=== PATIENT | male | born 1950 | race Caucasian/White ===

== ENCOUNTER → 2018-11-17 | Outpatient (CLI) | payer MEDICARE, BC, OTHER ==
[~2018-11-17] MED LIST: ALEV220T26 PO; ANOR1AER IN; FOLI1TAB11 PO; HYDR200T3 PO; METH2.5T48 PO
[2018-11-17 09:02] LABS: HEMATOCRIT 43.6 % (42.0-52.0); HEMOGLOBIN 14.8 g/dl (13.5-17.5); MEAN CORPUSCULAR HGB CONC 33.9 g/dl (32.0-36.5); MEAN CORPUSCULAR VOLUME 94.4 fl (80.0-96.0); PLATELET COUNT, AUTOMATED 157 10^3/uL (150-450); RED BLOOD COUNT 4.62 10^6/uL (4.30-6.10); WHITE BLOOD COUNT 5.9 10^3/uL (4.0-10.0)
[2018-11-17 09:14] LABS: INR 1.07
[2018-11-17 09:22] LABS: ERYTHROCYTE SEDIMENTATION RATE 128 mm/hr (0-20)
--- NOTE | 2018-11-17 09:22 | REP ---
Chest two views HISTORY: Preop Comparison: None The lungs are hyperinflated. The lungs are clear. The heart is normal in size. The pulmonary vasculature is normal in appearance. The bony structure is intact. IMPRESSION: No acute disease. Electronically Signed by Jabari Cagle MD 11/17/2018 09:14 A
[2018-11-17 09:25] LABS: ALBUMIN 3.7 GM/DL (3.2-5.2); ALT/SGPT 22 U/L (12-78); BILIRUBIN,TOTAL 0.6 MG/DL (0.2-1.0); BLOOD UREA NITROGEN 27 MG/DL (7-18); CALCIUM LEVEL 8.8 MG/DL (8.8-10.2); CARBON DIOXIDE LEVEL 27 MEQ/L (21-32); CHLORIDE LEVEL 107 MEQ/L (98-107); CREATININE FOR GFR 0.86 MG/DL (0.70-1.30); GLOMERULAR FILTRATION RATE > 60.0 (>49); GLUCOSE, FASTING 82 MG/DL (70-100); POTASSIUM SERUM 4.2 MEQ/L (3.5-5.1); SODIUM LEVEL 141 MEQ/L (136-145); TOTAL PROTEIN 6.7 GM/DL (6.4-8.2)
--- NOTE | 2018-11-18 08:19 | ECGEPIP ---
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
== END ==
LOC: M LAB 08:27
PROVIDERS: ATTEND Physician Assistant Surgical
DX: Z01.818 Encounter for other preprocedural examination (principal); M16.11 Unilateral primary osteoarthritis, right hip; M05.79 Rheumatoid arthritis with rheumatoid factor of multiple sites without organ or systems involvement

== ENCOUNTER → 2018-11-17 | Outpatient (CLI) | payer MEDICARE, BC, OTHER ==
[2018-11-17 09:03] LABS: BASO # 0.1 10^3/uL (0.0-0.2); BASO % 1.1 % (0.0-1.0); EOS # 0.3 10^3/uL (0.0-0.50); EOS % 4.9 % (0.0-3.0); HEMATOCRIT 44.8 % (42.0-52.0); LYMPH # 1.4 10^3/uL (1.5-4.5); LYMPH % 24.5 % (24.0-44.0); MEAN CORPUSCULAR HEMOGLOBIN 32.3 pg (27.0-33.0); MEAN CORPUSCULAR HGB CONC 33.5 g/dl (32.0-36.5); MEAN CORPUSCULAR VOLUME 96.6 fl (80.0-96.0); MONO # 0.5 10^3/uL (0.0-0.8); MONO % 9.3 % (0.0-5.0); NEUTROPHILS # 3.4 10^3/uL (1.8-7.7); NEUTROPHILS % 59.7 % (36.0-66.0); PLATELET COUNT, AUTOMATED 155 10^3/uL (150-450); RED BLOOD COUNT 4.64 10^6/uL (4.30-6.10); WHITE BLOOD COUNT 5.7 10^3/uL (4.0-10.0)
[2018-11-17 09:37] LABS: ALBUMIN 3.7 GM/DL (3.2-5.2); ALT/SGPT 22 U/L (12-78); BILIRUBIN,TOTAL 0.6 MG/DL (0.2-1.0); BLOOD UREA NITROGEN 28 MG/DL (7-18); C REACTIVE PROTEIN QUANTITATIV 0.67 MG/DL (0.00-0.30); CALCIUM LEVEL 8.9 MG/DL (8.8-10.2); CARBON DIOXIDE LEVEL 27 MEQ/L (21-32); CHLORIDE LEVEL 107 MEQ/L (98-107); CREATININE FOR GFR 0.87 MG/DL (0.70-1.30); GLOMERULAR FILTRATION RATE > 60.0 (>49); GLUCOSE, FASTING 81 MG/DL (70-100); POTASSIUM SERUM 4.2 MEQ/L (3.5-5.1); SODIUM LEVEL 141 MEQ/L (136-145); TOTAL PROTEIN 6.7 GM/DL (6.4-8.2)
== END ==
LOC: M LAB 08:23
PROVIDERS: ATTEND Physician Assistant
DX: M05.79 Rheumatoid arthritis with rheumatoid factor of multiple sites without organ or systems involvement (principal)

== ENCOUNTER 2019-01-22 05:58 | Inpatient (IN) | payer MEDICARE, BC, OTHER ==
--- NOTE | 2019-01-13 14:16 | HPE ---
DATE OF ANTICIPATED ADMISSION: 01/22/2019 ATTENDING PHYSICIAN: Dr. Jon Ibarra. CHIEF COMPLAINT: Right hip pain and stiffness. HISTORY: This is a pleasant 68-year-old male patient with progressively worsening right hip pain and stiffness who has failed to improve with conservative management and has been consented for elective right total hip arthroplasty by Dr. Ibarra. ALLERGIES: No known drug allergies CURRENT MEDICATIONS: - cholecalciferol 50,000 units one by mouth daily - folic acid 1 mg one by mouth daily - Ellipta 62.5 - 25 mcg one puff daily - hydroxychloroquine 200 mg one by mouth twice a day - methotrexate 2.5 mg 10 tablets one time a week - Tylenol 325 mg one by mouth daily every 4 hours - tramadol 50 mg one by mouth every 8 hours as needed PAST MEDICAL HISTORY: Chronic obstructive pulmonary disease (COPD). Rheumatoid arthritis. PAST SURGICAL HISTORY: Hernia repair 2016. Cataract lens implant April 2017. FAMILY HISTORY: Mother . Father . SOCIAL HISTORY: The patient is a current one to two pack smoker a day. He does not use alcohol or illicit drugs. REVIEW OF SYSTEMS: The patient denies fever, chills. He does report shortness of breath, chronic, denies nausea, vomiting, diarrhea. Does report pain in the right hip with weightbearing activities and denies recent upper respiratory or urinary tract infection symptoms. PHYSICAL EXAMINATION: Height 69 inches, weight 147 pounds, temperature 97.4, blood pressure 130/86, pulse 67, respirations 14th. He is normocephalic, atraumatic, well-nourished, well-developed adult male who ambulates with an antalgic gait favoring the right side. S1 and S2 auscultated. Lungs: Clear to auscultation bilaterally with no wheezes, rales, rhonchi. Abdomen: Soft, nontender. Right hip with no rash. Overlying skin is intact. No obvious deformity. Pain with range of motion. The right lower extremity is well perfused and neurovascular status is intact. Neck is supple with no with no lymphadenopathy or jugular venous distention (JVD). EKG with normal sinus rhythm. Chest x-ray with no acute cardiopulmonary process. LABS: White blood count 5.9, red blood count 4.62, hemoglobin 14.8, hematocrit 43.6, ESR 128. PT 114, INR 1.07, BUN 27, creatinine 0.86. Preoperative medical optimization by Dr. Bruno was appreciated today on chart as well as pulmonary clearance by Dr. Wen. ASSESSMENT: Symptomatic degenerative changes of the right hip. PLAN: Consented for right total hip arthroplasty by Dr. Jon Ibarra.
[~2019-01-22] VITALS: Ht 177.8 cm; Wt 68.4 kg
[2019-01-22] VITALS (7 sets, daily range): BP systolic 135–166; BP diastolic 81–89
[~2019-01-22 05:58] MED LIST changes: +CYMB1CAP4 PO; +PRED20TA PO; +TRAM50TA2 PO
[2019-01-22] MEDS ORDERED: ceFAZolin 2 GM/D5W 50 ML IV BAG (J0690 PER 500MG) As Ordered ONE (06:17)
[2019-01-22] MEDS ORDERED: LR 1,000 ML IV SCH ×3 (06:30→10:00)
[2019-01-22] MEDS ORDERED: LR 1,000 ML IV ONE (06:45)
[2019-01-22] MEDS ORDERED: EPINEPHrine INJ 1 MG/ML 1ML AMP As Ordered ONE (07:11)
[2019-01-22] MEDS ORDERED: ceFAZolin 1GM INJ (J0690 PER 500MG) As Ordered ONE (07:11)
[2019-01-22] MEDS ORDERED: TRANEXAMIC ACID 100 MG/ML 10ML VIAL As Ordered ONE (07:11)
[2019-01-22] MEDS ORDERED: PROPOFOL 200 MG/20 ML VIAL As Ordered ONE ×2 (07:13→08:30)
[2019-01-22] MEDS ORDERED: LIDOCAINE 2% INJ 100 MG/5 ML SDV (FOR ANES.) As Ordered ONE (07:13)
[2019-01-22] MEDS ORDERED: MIDAZOLAM INJ 2 MG/2 ML VIAL (J2250) As Ordered ONE (07:14)
[2019-01-22] MEDS ORDERED: fentaNYL 100 MCG/2 ML INJECTION (J3010) As Ordered ONE (07:14)
[2019-01-22] MEDS ORDERED: BUPIVACAINE/DEXTROSE 0.75% 2 ML AMP As Ordered ONE (07:20)
--- NOTE | 2019-01-22 07:31 | IPN ---
DATE: 01/22/2019 The patient is seen and examined. He wished to go ahead with a right total hip arthroplasty. He understands the nature of this, the risks of bleeding, infection, damage to nerves or vessels, persistent pain, wear loosening, dislocation, leg length inequality, blood clots, medical problems, among others. A preop clearance was obtained. He can no longer tolerate the hip pain wishes to proceed with arthroplasty.
[2019-01-22] MEDS ORDERED: ONDANSETRON 4MG/2ML VIAL (J2405) As Ordered ONE (08:34)
[2019-01-22] MEDS ORDERED: KETOROLAC 60 MG/2 ML VIAL (J1885) As Ordered ONE (08:34)
[2019-01-22] MEDS ORDERED: dexameTHASONE 4 MG/ML 1ML VIAL (J1100) As Ordered ONE (08:34)
[2019-01-22] MEDS: DULoxetine 20 MG CAP (CYMBALTA) PO SCH (09:00)
[2019-01-22] MEDS ORDERED: predniSONE 20 MG TAB PO SCH (09:00)
[2019-01-22] MEDS: FOLIC ACID 1 MG TAB PO SCH (09:00)
[2019-01-22] MEDS ORDERED: PERCOCET 5MG/325MG TAB As Ordered ONE (09:48)
[2019-01-22] MEDS ORDERED: fentaNYL 100 MCG/2 ML INJECTION (J3010) IV PRN (10:00)
[2019-01-22] MEDS ORDERED: ONDANSETRON 4MG/2ML VIAL (J2405) IV PRN ×2 (10:00→10:15)
[2019-01-22] MEDS ORDERED: MORPHINE 10 MG/ML 1ML VIAL (J2270) IV PRN (10:00)
[2019-01-22] MEDS ORDERED: PERCOCET 5MG/325MG TAB PO PRN (10:00)
[2019-01-22] MEDS ORDERED: METOCLOPRAMIDE INJ 10MG/2ML VIAL (J2765) IV PRN (10:00)
[2019-01-22] MEDS ORDERED: METHOTREXATE 2.5 MG TAB (J8610 PER 2.5MG) PO SCH (10:00)
[2019-01-22] MEDS ORDERED: IPRATROPIUM 0.5MG/ALBUTEROL 2.5MG INH SOL UD 3ML (DUONEB)(J7620) NEB PRN (10:15)
[2019-01-22] MEDS ORDERED: MORPHINE 4 MG/ML 1ML VIAL/SYRINGE (J2270) IV PRN ×2 (10:15)
[2019-01-22] MEDS ORDERED: ACETAMINOPHEN TAB 650MG DOSE (2X325MG) PO PRN (10:15)
[2019-01-22] MEDS ORDERED: FLEET ENEMA PR PRN (10:15)
--- NOTE | 2019-01-22 10:17 | REP ---
Right hip: Portable exam two views. History: Postop evaluation. Comparison right hip radiographs are from October 14, 2016. Findings: The right hip arthroplasty has been installed into good position. Lateral skin shlomo are seen. There is some periarticular soft tissue emphysema. Impression: Status post right hip arthroplasty. Electronically Signed by Kale Sheriff MD 01/22/2019 10:09 A
--- NOTE | 2019-01-22 10:35 | CR ---
DATE OF CONSULTATION: 01/22/2019 PRIMARY CARE PROVIDER: Krsytle physician. REFERRING PHYSICIAN: Dr. Jon Ibarra. REASON FOR CONSULTATION: Medical management of chronic illness. HISTORY OF PRESENT ILLNESS: This is a 68-year-old male with a history of chronic obstructive pulmonary disease (COPD), rheumatoid arthritis on methotrexate, hydroxychloroquine, who has recently been placed on prednisone 20 mg daily for the past 2 weeks by his auxiliary operator. He presents for a right total hip arthroplasty. Patient denies any shortness of breath, chest pain, pressure or tightness, lightheadedness or dizziness, changes in appetite. He denies any bright red blood per rectum, melena, abdominal pain, nausea, vomiting, dysuria, urgency or frequency. He currently has persistent right hip pain post surgery. Unable to feel his lower extremities status post spinal anesthesia. No headaches. NO changes in vision. No earache. No tinnitus. No decreased hearing. ALLERGIES: No known drug allergies. HOME MEDICATIONS: - folic acid 1 mg daily - duloxetine 20 mg daily - hydroxychloroquine 200 mg twice a day - methotrexate 2.5 mg, 10 mg tablet every 7 days. - prednisone 20 mg daily that was given by his auxiliary operator - Anoro Ellipta 62.5/25 one inhaled daily - tramadol 50 mg by mouth twice a day as needed PAST MEDICAL HISTORY: Chronic obstructive pulmonary disease (COPD) Rheumatoid arthritis. PAST SURGICAL HISTORY: Hernia repair 2016. Cataract lens implant April 2017. Right hip arthroplasty 01/22/2019. FAMILY HISTORY: Mother is . Father . SOCIAL HISTORY: One to two pack a day smoker. Refused to quit. No alcohol or illicit drug use. REVIEW OF SYSTEMS: Her history of present illness (HPI). Otherwise negative. PHYSICAL EXAMINATION: Temperature 97.9, pulse 63, respiratory 20, blood pressure is 119/91, 96% on 2 liters nasal cannula. Generally, patient is awake, alert, oriented times three. Answers questions appropriately. No jugular venous distention (JVD). No thyromegaly. Dry mucous membranes. No cervical lymphadenopathy. Pupils equal, round, and reactive to light and accommodation. Extraocular muscles intact. Normocephalic, atraumatic. Lungs are clear to auscultation. No wheezing, rales or rhonchi. Heart: S1, S2, sinus rhythm. No murmurs, rubs or gallops. Abdomen is soft, nontender, nondistended. Positive bowel sounds. Extremities: No cyanosis, clubbing or edema. Postop changes in the right hip. LABORATORY DATA: No laboratory data available. ASSESSMENT/PLAN: 68-year-old male with history of mild chronic obstructive pulmonary disease (COPD), rheumatoid arthritis, pulmonary nodules, pulmonary emphysema, cigarette nicotine dependence, presents for right total hip replacement due to history of osteoarthritis. CURRENT ISSUES: 1. Right hip replacement: Postop management per Dr. Jon Ibarra. Due to recent prednisone use, will monitor for adrenal insufficiency and hydrocortisone will be given IV every 6 hours as needed, should the patient become hypotensive. He will be continued on his hydroxychloroquine and methotrexate postoperatively. 2. Rheumatoid arthritis: Continue on hydroxychloroquine and methotrexate. Patient had spinal anesthesia. No signs of atlanto-odontoid issues. 3. Continue folic acid. 4. Mild COPD: Nebulizer treatments and continue on Auro Ellipta. 5. Deep venous thrombosis (DVT prophylaxis per primary team. 6. Diet: COPD diet.
[2019-01-22 10:40] LABS: BASO % 0.4 % (0.0-1.0); EOS # 0.1 10^3/uL (0.0-0.50); EOS % 1.2 % (0.0-3.0); HEMATOCRIT 38.8 % (42.0-52.0); HEMOGLOBIN 12.7 g/dl (13.5-17.5); LYMPH # 2.2 10^3/uL (1.5-4.5); LYMPH % 20.9 % (24.0-44.0); MEAN CORPUSCULAR HEMOGLOBIN 32.5 pg (27.0-33.0); MEAN CORPUSCULAR HGB CONC 32.7 g/dl (32.0-36.5); MEAN CORPUSCULAR VOLUME 99.2 fl (80.0-96.0); MONO # 0.7 10^3/uL (0.0-0.8); MONO % 6.4 % (0.0-5.0); NEUTROPHILS # 7.2 10^3/uL (1.8-7.7); NEUTROPHILS % 69.7 % (36.0-66.0); PLATELET COUNT, AUTOMATED 116 10^3/uL (150-450); RED BLOOD COUNT 3.91 10^6/uL (4.30-6.10); WHITE BLOOD COUNT 10.3 10^3/uL (4.0-10.0)
[2019-01-22 11:12] LABS: BLOOD UREA NITROGEN 26 MG/DL (7-18); CALCIUM LEVEL 7.8 MG/DL (8.8-10.2); CARBON DIOXIDE LEVEL 30 MEQ/L (21-32); CHLORIDE LEVEL 107 MEQ/L (98-107); CHOLESTEROL LEVEL 148 MG/DL (<200); CHOLESTEROL RISK RATIO 2.144 (<5); GLOMERULAR FILTRATION RATE > 60.0 (>49); GLUCOSE, FASTING 86 MG/DL (70-100); HDL CHOLESTEROL 69 MG/DL (>40); LDL CHOLESTEROL 68 MG/DL (<100); NON-HDL-C 79 MG/DL; POTASSIUM SERUM 4.8 MEQ/L (3.5-5.1); SODIUM LEVEL 140 MEQ/L (136-145); TRIGLYCERIDES LEVEL 55 MG/DL (<150)
[2019-01-22] MEDS: IPRATROPIUM 0.5MG/ALBUTEROL 2.5MG INH SOL UD 3ML (DUONEB)(J7620) NEB SCH ×3 (12:00→20:00)
--- NOTE | 2019-01-22 16:18 | RO ---
DATE OF PROCEDURE: 01/22/2019 PREOPERATIVE DIAGNOSIS: Right hip osteoarthritis, advanced. POSTOPERATIVE DIAGNOSIS: Right hip osteoarthritis, advanced. PROCEDURE: Right total hip arthroplasty using a DePuy [place] stem size 8 high offset with a 56 cup and a +12 neck, 36 head. SURGEON: Jon Ibarra MD HOSPITAL EDUCATION COORDINATOR: ESTEFANY Stover ANESTHESIA: Spinal. ESTIMATED BLOOD LOSS: 200. COMPLICATIONS: None. INDICATIONS: This is a 68-year-old gentleman who has had gradually worsening right hip pain. He has severe arthritis on x-ray and somewhat of an unusual anatomy. He is in some valgus on the x-rays. His greater trochanter seems to be a little less developed and his lesser trochanter might be a little on the lower side, so he definitely has some anatomic variation. He wished to go ahead with hip replacement. He understood the nature of this, the risks of bleeding, infection, damage to nerves, vessels, persistent pain, wear loosening, dislocation, leg length inequality, blood clots, medical problems, , among others. DESCRIPTION OF PROCEDURE: The patient was taken to the operating room and placed in supine position after spinal anesthesia was induced in the left lateral decubitus position. All areas were padded appropriately. We prepped and draped the right hip in the usual fashion. Time-out was performed. A longitudinal incision was made over the lateral aspect of the hip. Sharp dissection was carried down through subcutaneous tissue. I controlled hemostasis with a cautery, incised the fascia alpa and identified the abductors. I divided about the anterior 40% of the abductor off of the anterior aspect of the hip and exposed the proximal femur and head and down to the lesser trochanter. We dislocated the hip without much difficulty and put the leg in the bag. I then used a canal initiating reamer and reamed up to a size 7 initially, which had fairly good bony purchase. We had templated approximately around 8. I made the neck cut about a fingerbreadth or so from the lesser trochanter. I then removed the head, prepared the acetabulum by removing soft tissue from around the acetabulum and then reaming up to a size 55, which had good concentric reaming, good bleeding bone, but I did have to medialize and in the process also reamed a little bit more proximally. He had a very shallow acetabulum. This provided excellent concentric reaming. I placed the 56 cup in the appropriate amount of anteversion horizontal tilt and impacted it in place, well positioned, cuff was noted. He had significant osteophytes anteriorly and posteriorly and with significant difficulty I was able to remove these osteophytes. I used an osteotome and rongeur. After that there was nothing that seemed to provide any potential impingement. I then placed the actual liner and impacted in place. The canal was then prepared. I gradually broached up to a size 7 and eventually decided on the size 8, which had better fill. It did set up a little bit more proud. I did have to ream up to a size 8, but actually provided actually excellent fit and fill. We trialed various neck lengths and decided on a +12 high offset combination. It had very good stability, minimal shuck in full extension and did seem to reproduce his anatomy with his greater trochanter being a little lower than the femoral head would be in a normal hip. Once we were satisfied with these trial components in the range of motion and stability, the soft tissue tension was appropriate. We placed the actual stem in. I had irrigated multiple times along the way again, irrigated now and impacted in the size 8 high offset stem, placed the +12, 36 ball, impacted this in place over a dry taper, reduced the hip and put the hip through range of motion again. Very pleased with the stability, alignment, the soft tissue balance. Irrigated copiously. I then placed the Tranexamic acid (TXA) solution and repaired the minimus with #1 Vicryl suture, the abductor with #1 Vicryl suture through several bony holes. Excellent repair was noted. The fascia alpa was repaired with #1 Vicryl suture in running Stratafix suture obtaining a watertight closure. Again, the soft tissue tension was appropriate. It was not difficult to close these layers. I closed the subcu with #2-0 Vicryl and the skin with shlomo. Sterile dressing was applied. He was taken to recovery room in stable condition. There were no known complications. It does appear on the patient's bed that his leg lengths are approximately symmetric. It does not appear to be overly long on the surgical side, if anything, it may be a tiny bit short on the surgical side. The assistant department manager was instrumental in holding retractors and dislocating and reducing the hip, assisting in wound closure.
[2019-01-22] MEDS: HYDROXYCHLOROQUINE 200 MG TAB PO SCH (19:48)
[2019-01-22] MEDS: PERCOCET 5MG/325MG TAB PO PRN ×2 (19:48→23:49)
[2019-01-23 06:00] VITALS: BP 127/77
[2019-01-23] MEDS: PERCOCET 5MG/325MG TAB PO PRN ×3 (06:27→18:42)
[2019-01-23] MEDS ORDERED: PERCOCET 5MG/325MG TAB PO PRN (06:30)
[2019-01-23 06:38] LABS: HEMATOCRIT 37.4 % (42.0-52.0); HEMOGLOBIN 12.3 g/dl (13.5-17.5); MEAN CORPUSCULAR HEMOGLOBIN 32.2 pg (27.0-33.0); MEAN CORPUSCULAR HGB CONC 32.9 g/dl (32.0-36.5); MEAN CORPUSCULAR VOLUME 97.9 fl (80.0-96.0); PLATELET COUNT, AUTOMATED 114 10^3/uL (150-450); RED BLOOD COUNT 3.82 10^6/uL (4.30-6.10)
[2019-01-23] MEDS ORDERED: PERC5TAB12 PO (06:46)
[2019-01-23] MEDS ORDERED: XARE10TA PO (06:46)
[2019-01-23] MEDS: IPRATROPIUM 0.5MG/ALBUTEROL 2.5MG INH SOL UD 3ML (DUONEB)(J7620) NEB SCH ×4 (07:28→20:00)
[2019-01-23] MEDS ORDERED: predniSONE 5 MG TAB PO ONE (09:00)
[2019-01-23] MEDS: MIRALAX *UNIT DOSE* 17GM PACKET PO SCH (09:19)
[2019-01-23] MEDS: MOM 30ML SUSPENSION UDC PO SCH (09:19)
[2019-01-23] MEDS: SENOKOT S TAB PO SCH ×2 (09:20→21:02)
[2019-01-23] MEDS: DULoxetine 20 MG CAP (CYMBALTA) PO SCH (09:20)
[2019-01-23] MEDS: HYDROXYCHLOROQUINE 200 MG TAB PO SCH ×2 (09:20→21:03)
[2019-01-23] MEDS: FOLIC ACID 1 MG TAB PO SCH (09:20)
[2019-01-23 14:00] VITALS: BP 156/96
[2019-01-23] MEDS ORDERED: RIVAROXABAN 10 MG TAB (XARELTO) PO SCH (18:00)
--- NOTE | 2019-01-23 19:14 | IPNPDOC ---
Date Seen The patient was seen on 01/23/19. Progress Note SUBJECTIVE: Pt was seen and exmained at the bedside. Chart has been reviewed. postop hip pain rated at 3/10 on pain scale. no other issues per RN. no c/o sob, no episodes of hypotension despite stress of surgery and recent steroid use for arthritic joint pains from RA. OBJECTIVE PHYSICAL EXAMINATION: VITALS: PLS SEE BELOW Generally, patient is awake, alert, oriented times three. Answers questions appropriately. No jugular venous distention (JVD). No thyromegaly. Dry mucous membranes. No cervical lymphadenopathy. Pupils equal, round, and reactive to light and accommodation. Extraocular muscles intact. Normocephalic, atraumatic. Lungs are clear to auscultation. No wheezing, rales or rhonchi. Heart: S1, S2, sinus rhythm. No murmurs, rubs or gallops. Abdomen is soft, nontender, nondistended. Positive bowel sounds. Extremities: No cyanosis, clubbing or edema. Postop changes in the right hip. LABORATORY DATA,IMAGING STUDIES: PLS SEE BELOW ASSESSMENT AND PLAN: 68-year-old male with a history of chronic obstructive pulmonary disease (COPD), rheumatoid arthritis on methotrexate, hydroxychloroquine, who has recently been placed on prednisone 20 mg daily for the past 2 weeks by his land measurer. He presents for a right total hip arthroplasty. Patient denies any shortness of breath, chest pain, pressure or tightness, lightheadedness or dizziness, changes in appetite. He denies any bright red blood per rectum, melena, abdominal pain, nausea, vomiting, dysuria, urgency or frequency. He currently has persistent right hip pain post surgery. Unable to feel his lower extremities status post spinal anesthesia. No headaches. NO changes in vision. No earache. No tinnitus. No decreased hearing. Right hip replacement: Postop management per Dr. Jon Ibarra. Due to recent prednisone use, will monitor for adrenal insufficiency and hydrocortisone will be given IV every 6 hours as needed, should the patient become hypotensive. He will be continued on his hydroxychloroquine and methotrexate postoperatively. Rheumatoid arthritis: Continue on hydroxychloroquine and methotrexate. Patient had spinal anesthesia. No signs of atlanto-odontoid issues. Continue folic acid. on tapered dose of prednisone. no signs of adrenal insufficiency. Mild COPD: Nebulizer treatments and continue on Auro Ellipta. Deep venous thrombosis (DVT prophylaxis per primary team. Diet: COPD diet. VS, I&O, 24H, Fishbone Vital Signs/I&O Vital Signs Date Time Temp Pulse Resp B/P (MAP) Pulse Ox O2 Delivery O2 Flow Rate FiO2 01/23/19 06:27 18 01/23/19 06:00 97.9 80 127/77 (94) 96 2.0 I&O- Last 24 Hours up to 6 AM 01/23/19 05:59 Intake Total 2140 ml Output Total 1150 ml Balance 990 ml Laboratory Data 24H LABS Laboratory Tests 2 01/22/19 10:26: Immature Granulocyte % (Auto) 1.4, White Blood Count 10.3H, Red Blood Count 3.91L, Hemoglobin 12.7L, Hematocrit 38.8L, Mean Corpuscular Volume 99.2H, Mean Corpuscular Hemoglobin 32.5, Mean Corpuscular Hemoglobin Concent 32.7, Red Cell Distribution Width 15.8H, Platelet Count 116L, Neutrophils (%) (Auto) 69.7H, Lymphocytes (%) (Auto) 20.9L, Monocytes (%) (Auto) 6.4H, Eosinophils (%) (Auto) 1.2, Basophils (%) (Auto) 0.4, Neutrophils # (Auto) 7.2, Lymphocytes # (Auto) 2.2, Monocytes # (Auto) 0.7, Eosinophils # (Auto) 0.1, Basophils # (Auto) 0.0, Nucleated Red Blood Cells % (auto) 0.6H, Anion Gap 3L, Glomerular Filtration Rate > 60.0, Calcium Level 7.8L, Triglycerides Level 55, LDL Cholesterol 68, Total Cholesterol 148, Non-HDL Cholesterol (LDL + VLDL) 79, Total HDL Cholesterol 69, Cholesterol/HDL Ratio 2.144, Thyroid Stimulating Hormone (TSH) 2 .140 01/23/19 06:12: Nucleated Red Blood Cells % (auto) 0.0 CBC/BMP Laboratory Tests 01/22/19 10:26 Red Blood Count 3.91 L, Mean Corpuscular Volume 99.2 H, Mean Corpuscular Hemoglobin 32.5, Mean Corpuscular Hemoglobin Concent 32.7, Red Cell Distribution Width 15.8 H, Neutrophils (%) (Auto) 69.7 H, Lymphocytes (%) (Auto) 20.9 L, Monocytes (%) (Auto) 6.4 H, Eosinophils (%) (Auto) 1.2, Basophils (%) (Auto) 0.4, Neutrophils # (Auto) 7.2, Lymphocytes # (Auto) 2.2, Monocytes # (Auto) 0.7, Eosinophils # (Auto) 0.1, Basophils # (Auto) 0.0 01/23/19 06:12 Red Blood Count 3.82 L, Mean Corpuscular Volume 97.9 H, Mean Corpuscular Hemoglobin 32.2, Mean Corpuscular Hemoglobin Concent 32.9, Red Cell Distribution Width 15.6 H PREET YUNG MD Jan 23, 2019 08:06
[2019-01-23 22:00] VITALS: BP 142/80
[2019-01-24] MEDS: PERCOCET 5MG/325MG TAB PO PRN ×2 (00:23→07:17)
[2019-01-24 06:00] VITALS: BP 139/80
[2019-01-24 06:08] LABS: HEMATOCRIT 38.1 % (42.0-52.0); HEMOGLOBIN 12.3 g/dl (13.5-17.5); MEAN CORPUSCULAR HEMOGLOBIN 32.5 pg (27.0-33.0); MEAN CORPUSCULAR HGB CONC 32.3 g/dl (32.0-36.5); MEAN CORPUSCULAR VOLUME 100.8 fl (80.0-96.0); PLATELET COUNT, AUTOMATED 132 10^3/uL (150-450); RED BLOOD COUNT 3.78 10^6/uL (4.30-6.10); WHITE BLOOD COUNT 14.1 10^3/uL (4.0-10.0)
[2019-01-24] MEDS ORDERED: XARE10TA PO (06:19)
[2019-01-24] MEDS ORDERED: BISACODYL 10 MG SUPP PR ONE (06:30)
[2019-01-24] MEDS: IPRATROPIUM 0.5MG/ALBUTEROL 2.5MG INH SOL UD 3ML (DUONEB)(J7620) NEB SCH (07:42)
--- NOTE | 2019-01-24 07:50 | IPNPDOC ---
Date Seen The patient was seen on 01/24/19. Progress Note SUBJECTIVE: pt had a little skin tear at the left elbow which bled a little and stopped with pressure. Pt was seen and exmained at the bedside. Chart has been reviewed. postop hip pain rated at2/10 on pain scale. no other issues per RN. no c/o sob, no episodes of hypotension despite stress of surgery and recent steroid use for arthritic joint pains from RA. OBJECTIVE PHYSICAL EXAMINATION: VITALS: PLS SEE BELOW Generally, patient is awake, alert, oriented times three. Answers questions appropriately. No jugular venous distention (JVD). No thyromegaly. Dry mucous membranes. No cervical lymphadenopathy. Pupils equal, round, and reactive to light and accommodation. Extraocular muscles intact. Normocephalic, atraumatic. Lungs are clear to auscultation. No wheezing, rales or rhonchi. Heart: S1, S2, sinus rhythm. No murmurs, rubs or gallops. Abdomen is soft, nontender, nondistended. Positive bowel sounds. Extremities: No cyanosis, clubbing or edema. Postop changes in the right hip. skin: skin tear on left elbow LABORATORY DATA,IMAGING STUDIES: PLS SEE BELOW ASSESSMENT AND PLAN: 68-year-old male with a history of chronic obstructive pulmonary disease (COPD), rheumatoid arthritis on methotrexate, hydroxychloroquine, who has recently been placed on prednisone 20 mg daily for the past 2 weeks by his tax specialist. He presents for a right total hip arthroplasty. Patient denies any shortness of breath, chest pain, pressure or tightness, lightheadedness or dizziness, changes in appetite. He denies any bright red blood per rectum, melena, abdominal pain, nausea, v omiting, dysuria, urgency or frequency. He currently has persistent right hip pain post surgery. Unable to feel his lower extremities status post spinal anesthesia. No headaches. NO changes in vision. No earache. No tinnitus. No decreased hearing. Right hip replacement: Postop management per Dr. Jon Ibarra. Due to recent prednisone use, will monitor for adrenal insufficiency and hydrocortisone will be given IV every 6 hours as needed, should the patient become hypotensive. He will be continued on his hydroxychloroquine and methotrexate postoperatively. Rheumatoid arthritis: Continue on hydroxychloroquine and methotrexate. Patient had spinal anesthesia. No signs of atlanto-odontoid issues. Continue folic acid. on tapered dose of prednisone. no signs of adrenal insufficiency. Mild COPD: Nebulizer treatments and continue on Auro Ellipta. Deep venous thrombosis (DVT prophylaxis per primary team. Diet: COPD diet. VS, I&O, 24H, Fishbone Vital Signs/I&O Vital Signs Date Time Temp Pulse Resp B/P (MAP) Pulse Ox O2 Delivery O2 Flow Rate FiO2 01/24/19 07:17 18 01/24/19 06:00 98.9 83 139/80 (99) 95 01/23/19 06:00 2.0 I&O- Last 24 Hours up to 6 AM 01/24/19 06:00 Intake Total 1680 ml Output Total 0 ml Balance 1680 ml Laboratory Data 24H LABS Laboratory Tests 2 01/24/19 05:36: Nucleated Red Blood Cells % (auto) 0.0 CBC/BMP Laboratory Tests 01/24/19 05:36 Red Blood Count 3.78 L, Mean Corpuscular Volume 100.8 H, Mean Corpuscular Hemoglobin 32.5, Mean Corpuscular Hemoglobin Concent 32.3, Red Cell Distribution Width 15.9 H PREET YUNG MD Jan 24, 2019 07:50
[2019-01-24] MEDS ORDERED: predniSONE 10 MG TAB PO ONE (09:00)
[2019-01-24] MEDS: MIRALAX *UNIT DOSE* 17GM PACKET PO SCH (10:09)
[2019-01-24] MEDS: MOM 30ML SUSPENSION UDC PO SCH (10:09)
[2019-01-24] MEDS: DULoxetine 20 MG CAP (CYMBALTA) PO SCH (10:09)
[2019-01-24] MEDS: SENOKOT S TAB PO SCH (10:09)
[2019-01-24] MEDS: HYDROXYCHLOROQUINE 200 MG TAB PO SCH (10:09)
[2019-01-24] MEDS: FOLIC ACID 1 MG TAB PO SCH (10:09)
[2019-01-25] MEDS ORDERED: predniSONE 5 MG TAB PO ONE (09:00)
== END 2019-01-24 12:45 | disposition home or self-care (01) | DRG 470 ==
LOC: M OR 05:58 → M MS5PR 12:00
PROVIDERS: ADMIT Orthopaedic Surgery; ATTEND Orthopaedic Surgery
PROC: 0SR9029 Replacement of Right Hip Joint with Metal on Polyethylene Synthetic Substitute, Cemented, Open Approach (ICD-10-PCS; principal; 2019-01-22 07:30)
DX: M16.11 Unilateral primary osteoarthritis, right hip (principal); Z79.899 Other long term (current) drug therapy; J44.9 Chronic obstructive pulmonary disease, unspecified; M06.9 Rheumatoid arthritis, unspecified; F17.200 Nicotine dependence, unspecified, uncomplicated